=== PATIENT | female | born 1965 | race African-American/Black ===

== ENCOUNTER 2022-03-21 11:47 | Outpatient (REF) | payer OTHER, SELFPAY ==
--- NOTE | ~2022-03-21 | XR_ITS ---
EXAMINATION: XR LUMBOSACRAL SPINE CLINICAL INFORMATION: Chronic low back pain. COMPARISON: None. TECHNIQUE: 3 views of the lumbosacral spine. FINDINGS: Vertebral bodies normally aligned. Multilevel degenerative disc change with endplate osteophytes and mild disc space narrowing from L1-L2 through L4-L5. No fracture or bone lesion. Surrounding soft tissues normal. Partially visualized pelvis including sacroiliac joints are normal. Surgical clips present right upper quadrant. XR/XR lumbar spine 2-3V IMPRESSION: Mild multilevel spondylosis of lumbosacral spine. No acute abnormality.
== END 2022-03-21 11:48 | disposition home or self-care (01) ==
LOC: HO.XRAY 11:47
PROVIDERS: PCP Nurse Practitioner Family; Visit Provider Internal Medicine
DX: M54.50 Low back pain, unspecified (principal)
CPT/HCPCS: 72100